=== PATIENT | female | born 1990 | race Caucasian/White ===

== ENCOUNTER 2020-02-24 12:29 | Emergency (ER) | payer OTHER ==
[2020-02-24 12:49] VITALS: BMI 27.4
[2020-02-24 14:06] VITALS: BP 117/67; PULSE 70; TEMP 98
== END 2020-02-24 15:40 | disposition home or self-care (01) ==
LOC: JERFT 12:29 → JER 12:29
DX: O9A.213 Injury, poisoning and certain other consequences of external causes complicating pregnancy, third trimester (principal); M79.651 Pain in right thigh; Z3A.40 40 weeks gestation of pregnancy; W19.XXXA Unspecified fall, initial encounter
CPT/HCPCS: 99281-25